=== PATIENT | male | born 1980 | race Caucasian/White ===

== ENCOUNTER → 2019-05-19 15:46 | Outpatient (POV) | payer BC, SELFPAY | PROVIDERS: Visit Provider Dermatology | DX: Z00.00 Encounter for general adult medical examination without abnormal findings (principal) ==

== ENCOUNTER → 2019-06-19 15:50 | Outpatient (CLI) | payer BC, SELFPAY ==
--- NOTE | 2019-06-19 | XR_ITS ---
PROCEDURE: XR ANKLE LT MIN 3V CLINICAL INDICATION: Pain and swelling COMPARISON: XR FOOT LT MIN 3V from 06/19/2019 FINDINGS: No fracture or dislocation. No lytic or blastic change. There is mild soft tissue swelling about ankle. No fracture or dislocation of the foot. No lytic or blastic change. There is normal alignment. IMPRESSION: No acute findings. Dictated by: Alexi Grove MD 06/19/2019 16:23 Electronically signed by Alexi Grove MD in [place] 06/19/2019 16:23
== END ==
PROVIDERS: PCP Internal Medicine; Visit Provider Internal Medicine
DX: M25.572 Pain in left ankle and joints of left foot (principal)
CPT/HCPCS: 73610; 73630

== ENCOUNTER → 2019-06-23 15:47 | Outpatient (POV) | payer BC, SELFPAY | PROVIDERS: Visit Provider Dermatology | DX: Z00.00 Encounter for general adult medical examination without abnormal findings (principal) ==

== ENCOUNTER → 2021-01-03 09:17 | Outpatient (POV) | payer BC, SELFPAY | PROVIDERS: Visit Provider Dermatology | DX: Z00.00 Encounter for general adult medical examination without abnormal findings (principal) ==

== ENCOUNTER 2022-06-06 11:46 | Emergency (ER) | payer BC, SELFPAY ==
[2022-06-06 12:20] VITALS: BP 132/91; PULSE 88; RESP 16; TEMP 36.5; O2SAT 98; BMI 25.8
--- NOTE | 2022-06-06 12:24 | EXP.UTC ---
Discharge Plan Disposition Patient Disposition: Home, Self-Care Condition: Good Prescriptions Prescriptions: New benzonatate [benzonatate] 100 mg capsule 100 mg PO TIDP PRN (Reason: Cough) Qty: 30 0RF methylprednisolone 4 mg Tablets,Dose Pack 4 mg PO DIRECTED Qty: 21 0RF cefdinir 300 mg capsule 300 mg PO BID Qty: 20 0RF No Action mupirocin 2 % ointment 1 applic TOPICAL TID 10 Days Qty: 30 0RF clobetasol 0.05 % ointment 1 applic TOPICAL BID 30 Days Qty: 60 0RF sulfacetamide sodium [Bleph-10] 10 % drops 1 drp OPHTHALMIC QID 7 Days Qty: 15 0RF Referrals Follow up/Referrals: Joaquín Gallegos MD [Primary Care Provider] - See instructions Activity Restrictions/Add. Instructions Additional Instructions/Restrictions: Drink plenty of fluids. Take tylenol or ibuprofen for pain or fever. Take the medications as directed. Follow up with your regular doctor. GO TO THE ER FOR ANY WORSENING SYMPTOMS Clinical Impressions Clinical Impression: Sinusitis, Bronchitis Instructions Patient Instructions: Sinusitis, DI for Sinusitis, DI for Acute Bronchitis Discharge ED Provider: Lonnie Whipple [facility] General Stated complaint: congestion, body aches, fatigue Mode of Arrival: Ambulatory Source of Information: Patient Limitations: No Limitations Time Seen by Provider: 06/06/22 12:24 Description of Symptoms (Recalled from Triage Doc. by RN): pt comes in with c/o cough, chest congestion, fatigue. symptoms ongoing for 1.5 weeks HEENT Symptoms (Recalled from RN notes): No Resp Symptoms (Recalled from RN notes): Yes Skin Symptoms (Recalled from RN notes): No MS Symptoms (Recalled from RN notes): No Functional Status (Recalled from RN notes): n/a History of Present Illness Provider Complaint: He states that for the past 2 weeks he has had cough, chest congestion, and sinus congestion. He refuses any testing and he refuses a chest x-ray today. Related Data Previous Rx's Medication Instructions Recorded mupirocin 2 % topical ointment 1 applic topical TID skin 10/30/18 infection 10 days #30 grams clobetasol 0.05 % topical ointment 1 applic topical BID dermatitis 30 02/15/19 days #60 grams sulfacetamide sodium 10 % eye 1 drp ophthalmic (eye) QID 02/15/19 drops (Bleph-10) conjunctivitis 7 days #15 mL benzonatate 100 mg capsule 100 mg PO TIDP PRN Cough #30 caps 06/06/22 cefdinir 300 mg capsule 300 mg PO BID #20 caps 06/06/22 methylprednisolone 4 mg tablets in 4 mg PO DIRECTED #21 tabs 06/06/22 a dose pack Allergies Allergy/AdvReac Type Severity Reaction Status Date / Time Penicillins Allergy Verified 06/06/22 12:21 Worker's Comp Is this a Worker's Comp case?: No PFSH PFSH Social History Smoking Status: Current every day smoker tobacco type: cigarettes alcohol intake: current substance use type: denies use current occupational status: employed Travel in the last 8 weeks: None household members: family housing: house ROS Obtained: Yes All systems reviewed & no additional complaints except as documented Constitutional Constitutional: Reports chills and Denies fever(s) Eyes Eyes: Denies eye discharge ENT Ears, Nose, Mouth, and Throat: Reports as per HPI Cardiovascular Cardiovascular: Denies chest pain Respiratory Respiratory: Denies shortness of breath, Reports chest congestion, Reports cough, Denies stridor and Denies wheezing Gastrointestinal Gastrointestingal: Reports nausea; Denies abdominal pain, constipation, cramping, diarrhea or vomiting Musculoskeletal Musculoskeletal: Denies arthralgias Integumentary/Breasts Skin/Breast: Denies rash Neurologic Neurologic: Denies paresthesias Allergic/Immunologic Allergic/Immunologic: Denies wheezing Physical Exam General General appearance: alert and in no apparent distress Head Head exam: atraumatic, normocephalic and normal inspection Eye Eye e
[2022-06-06 12:39] VITALS: BP 132/91; PULSE 88; RESP 16; TEMP 36.5
== END 2022-06-06 12:42 | disposition home or self-care (01) ==
PROVIDERS: Emergency Provider Nurse Practitioner Family; PCP Internal Medicine
DX: J40 Bronchitis, not specified as acute or chronic (principal); J32.9 Chronic sinusitis, unspecified
CPT/HCPCS: 99212; G0463

== ENCOUNTER 2023-07-30 16:38 | Outpatient (CLI) | payer BC, SELFPAY ==
[2023-07-30 17:28] LABS: Basophils % 0.6 % (0.1-2.0); Eosinophils # 0.2 K/mm3 (0.0-0.4); Eosinophils % 2.6 % (0.1-12.0); Hematocrit 48.7 % (42.0-52.0); Hemoglobin 16.1 g/dL (14.1-18.0); Lymphocytes # 1.6 K/mm3 (0.7-4.5); Lymphocytes % 25.7 % (10-50); Mean Corpuscular Hemoglobin 30.3 pg (27.0-31.2); Mean Corpuscular Volume 91.6 fl (80-94); Mean Platelet Volume 9.3 fl (7.4-10.4); Monocytes # 0.4 K/mm3 (0.1-1.0); Monocytes % 6.8 % (1.7-9.3); Neutrophils # 4.1 K/mm3 (1.8-7.8); Neutrophils % 64.3 % (37.0-80.0); Platelet Count 290 K/mm3 (142-424); Red Blood Count 5.31 M/mm3 (4.60-6.20); Red Cell Distribution Width 13.4 % (11.5-17.5); White Blood Count 6.4 K/mm3 (4.8-10.8)
[2023-07-30 17:44] LABS: Alanine Aminotransferase 46 U/L (12-78); Albumin Level 4.7 g/dl (3.5-5.0); Albumin/Globulin Ratio 1.7 (1.1-1.8); Alkaline Phosphatase 88 U/L (38-126); Anion Gap 14.3 mEq/L (5-15); Aspartate Amino Transferase 37 U/L (17-59); Bilirubin,Total 0.6 mg/dl (0.2-1.3); Blood Urea Nitrogen 15 mg/dl (9-20); Calcium 9.1 mg/dl (8.4-10.2); Carbon Dioxide 28 mmol/L (22.0-30.0); Chloride 101 mmol/L (98-107); Chol/HDL Ratio 6.8 (1-3.5); Cholesterol 287 mg/dl (140-200); Estimated Glomerular Filt Rate 93 ml/min (>60); GFR (African American) 112 ML/MIN (>60); Globulin 2.7 g/dL (1.3-3.2); Glucose 80 mg/dl (74-100); HDL Cholesterol 42 mg/dl (40-60); Potassium 4.3 mmoL/L (3.5-5.1); Sodium 139 mmol/L (136-145); Total Protein,Serum 7.4 g/dl (6.3-8.2); Triglycerides 184 mg/dl (30-150); VLDL Cholesterol 37 mg/dL (0-40)
[2023-07-30 17:55] LABS: Direct LDL Cholesterol 184.18 mg/dL (100-129)
== END 2023-07-30 23:59 ==
PROVIDERS: PCP Internal Medicine; Visit Provider Internal Medicine
DX: E78.5 Hyperlipidemia, unspecified (principal); G56.02 Carpal tunnel syndrome, left upper limb; H60.63 Unspecified chronic otitis externa, bilateral; L30.9 Dermatitis, unspecified
CPT/HCPCS: 36415; 80053; 80061; 85025

== ENCOUNTER 2025-01-19 16:35 | Outpatient (CLI) | payer BC, SELFPAY ==
[2025-01-19 17:00] LABS: Hematocrit 40.0 % (42.0-52.0); Hemoglobin 13.4 g/dL (14.1-18.0); Immature Granulocytes % 5.1 %; Mean Corpuscular HGB Conc 33.5 g/dL (31.8-35.4); Mean Corpuscular Hemoglobin 29.0 pg (27.0-31.2); Mean Corpuscular Volume 86.6 fl (80-94); Nucleated Red Blood Cells % 0 %; Platelet Count 304 K/mm3 (142-424); Red Blood Count 4.62 M/mm3 (4.60-6.20); Red Cell Distribution Width-SD 39.4 fL; White Blood Count 5.5 K/mm3 (4.8-10.8)
[2025-01-19 17:24] LABS: Albumin Level 4.4 g/dl (3.5-5.0); Chloride 104 mmol/L (98-107); Sodium 139 mmol/L (136-145)
[2025-01-19 17:25] LABS: Potassium 4.9 mmoL/L (3.5-5.1)
[2025-01-19 17:27] LABS: Alanine Aminotransferase 50 U/L (12-78); Albumin/Globulin Ratio 1.5 (1.1-1.8); Anion Gap 12.9 mEq/L (5-15); Aspartate Amino Transferase 42 U/L (17-59); Bilirubin,Total 0.7 mg/dl (0.2-1.3); Blood Urea Nitrogen 15 mg/dl (9-20); Carbon Dioxide 27 mmol/L (22.0-30.0); Creatinine,Serum 1.00 mg/dl (0.66-1.25); Estimated Glomerular Filt Rate 82 ml/min (>60); GFR (African American) 99 ML/MIN (>60); Globulin 2.9 g/dL (1.3-3.2); Total Protein,Serum 7.3 g/dl (6.3-8.2)
[2025-01-19 17:28] LABS: Alkaline Phosphatase 80 U/L (38-126); Calcium 9.4 mg/dl (8.4-10.2); Cholesterol 228 mg/dl (140-200); Glucose 85 mg/dl (74-100); HDL Cholesterol 32 mg/dl (40-60); Triglycerides 194 mg/dl (30-150)
[2025-01-19 18:05] LABS: Total Cells Counted 100
[2025-01-19 18:08] LABS: RBC Morphology Normal
[2025-01-19 18:54] LABS: Uric Acid 6.8 mg/dl (3.5-8.5)
[2025-01-20 04:09] LABS: RA Latex Turbid. <10.0 IU/mL (<14.0)
[2025-01-20 12:19] LABS: Antinuclear Antibodies (ANA) Negative (Negative)
[2025-01-21 18:41] LABS: Antinuclear Antibodies, IFA Positive (.)
== END 2025-01-19 23:59 | disposition home or self-care (01) ==
LOC: LAB.DROPOF 01-20 10:51
PROVIDERS: PCP Internal Medicine; Visit Provider Internal Medicine
DX: M25.50 Pain in unspecified joint (principal); M25.60 Stiffness of unspecified joint, not elsewhere classified; E78.5 Hyperlipidemia, unspecified
CPT/HCPCS: 80053; 80061; 84550; 85007; 85025; 85027; 85651; 86038; 86431